=== PATIENT | female | born 1980 | race Caucasian/White ===

== ENCOUNTER 2017-08-21 05:10 | Day surgery (SDC) | payer OTHER ==
[2017-08-21] MEDS ORDERED: PERCOCET 5-3251 EACH PO (08:35)
[2017-08-21] MEDS ORDERED: COLACE100 MG PO (08:35)
== END 2017-08-21 15:50 | disposition home or self-care (01) ==
LOC: CIR.AMB 05:10
DX: K64.5 Perianal venous thrombosis (principal); K64.8 Other hemorrhoids

== ENCOUNTER 2024-10-10 05:42 | Day surgery (SDC) | payer OTHER ==
[2024-10-02 08:31] LABS: BASO % 0.6 % (0.1-1.2); EOS # 0.16 (0.04-0.54); EOS % 1.8 % (0.7-7.0); LYMPH # 1.88 (1.18-3.74); LYMPH % 20.9 % (19.3-53.1); MEAN PLATELET VOLUME 9.20 fl (9.4-12.4); MONO # 0.88 (0.24-0.82); MONO % 9.8 % (4.7-12.5); NEUT # 6.00 (1.56-6.13); NEUT % 66.6 % (34.0-71.1); RED CELL DISTRIBUTION WIDTH 12.6 % (11.6-14.4)
[2024-10-02 08:41] LABS: URINE APPEARANCE Clear; URINE BILIRRUBIN Negative (NEGATIVE); URINE BLOOD Negative; URINE COLOR Yellow; URINE GLUCOSE Negative (NEGATIVE); URINE KETONE Negative (NEGATIVE); URINE LEUKOCYTE Negative; URINE NITRATE Negative; URINE PROTEIN Negative (NEGATIVE); URINE UROBILINOGEN 0.2 E.U./dl
[2024-10-02 08:43] LABS: URINE BACTERIA 10.7 uL (0.0-1933); URINE EPITHELIAL CELLS 3.3 uL (0.0-38.8)
[2024-10-02 08:54] LABS: INR < 0.93
[2024-10-02 08:55] LABS: URINE CAST 0.00 uL (0.0-1.40); URINE RBC 0.8 uL (0.0-20.8); URINE WBC 1.3 uL (0.0-23.2)
[2024-10-02 09:00] VITALS: BP 121/81
[2024-10-02 09:36] LABS: ALT/SGPT 25.0 U/L (12-78); AST/SGOT 10.0 U/L (15-37); BILIRUBIN TOTAL 0.56 mg/dL (0.3-1.2); BUN CREA RATIO 27.0 (7.0-25.0); CREATININE SERUM 0.79 mg/dL (0.55-1.02); GFR 79.43; GLOBULINA 3.4 G/DL (2.4-3.5); GLUCOSE FASTING 107.0 mg/dL (65-100); OSMOLALITY SERUM 283.0 MOSM/KG (275-295)
[~2024-10-10] VITALS: Ht 165.1 cm; Wt 52.2 kg
[~2024-10-10 05:42] MED LIST: COLACE100 MG PO; METFORMIN HCL500 M3 PO; PERCOCET 5-3251 EACH PO
[2024-10-10] MEDS ORDERED: CEFTRIAXONE SODIUM 2,000 MG VIAL ONE (07:16)
[2024-10-10] MEDS ORDERED: METRONIDAZOLE/SODIUM CHLORIDE 500 MG/100 ML PIGGYBACK IV ONE (07:16)
[2024-10-10] MEDS ORDERED: POVIDONE-IODINE 118 ML BOTT TOP ONE (08:40)
[2024-10-10] MEDS ORDERED: BUPIVACAINE HCL/MPF 0.5% 30ML VIAL ONE (08:40)
[2024-10-10] MEDS ORDERED: LIDOCAINE HCL 1%/EPINEPHRINE 20ML VIAL IJ ONE (08:40)
[2024-10-10] MEDS ORDERED: DIBUCAINE 30 GM TUBE ONE (08:40)
[2024-10-10] MEDS ORDERED: TRIAMCINOLONE ACETONIDE 40 MG/ML VIAL ONE (09:57)
== END 2024-10-10 15:30 | disposition home or self-care (01) ==
LOC: CIR.AMB 05:42
PROVIDERS: ATTEND Colon & Rectal Surgery
DX: K62.0 Anal polyp (principal); K64.2 Third degree hemorrhoids; K62.3 Rectal prolapse

== ENCOUNTER 2024-11-16 23:22 | Emergency (ER) | payer OTHER ==
[~2024-11-16] VITALS: Ht 165.1 cm; Wt 52.2 kg
[2024-11-17] MEDS ORDERED: NAPHAZOLINE HCL/PHENIRAMINE 20 DR/ML DROPS OP STA (01:08)
[2024-11-17] MEDS ORDERED: GENTAMICIN SULFATE 0.15 MG/DR DROPS 5ML OP STA (01:08)
[2024-11-17] MEDS ORDERED: KETOROLAC TROMETHAMINE 10 MG TABLET PO STA (01:09)
[2024-11-17] MEDS ORDERED: TETRACAINE HCL 20 DR/ML DROPS OP STA (01:10)
[2024-11-17] MEDS ORDERED: GENTAMICIN SULFA5 ML OP (01:31)
[2024-11-17] MEDS ORDERED: REDNESS RELIEF15 ML OP (01:31)
== END 2024-11-17 01:43 ==
LOC: ER 23:22
DX: H10.9 Unspecified conjunctivitis (principal)